=== PATIENT | male | born 1965 | race Caucasian/White ===

== ENCOUNTER 2018-06-21 20:52 | Emergency (ER) | payer MEDICAID ==
[~2018-06-21] VITALS: Ht 170.2 cm; Wt 65.0 kg
[2018-06-21] MEDS ORDERED: morphine 4 MG/ML inj SYRINge IM ONE (21:50)
--- NOTE | 2018-06-21 23:42 | NUR ---
PT UP TO SIDE OF BED URINATED 300CC CLEAR YELLOW URINE WITH MINIMAL ASST.
[2018-06-21 23:49] VITALS: BP 122/83
[2018-06-21] MEDS ORDERED: PER10325T PO (23:54)
[2018-06-21] MEDS ORDERED: oxyCODONE/APAP 10/325mg tablet PO ONE (23:55)
== END 2018-06-22 00:24 | disposition home or self-care (01) ==
LOC: ER 20:53
DX: G89.18 Other acute postprocedural pain (principal); Z98.890 Other specified postprocedural states; Z79.899 Other long term (current) drug therapy
CPT/HCPCS: 96372; 99283; J2270

== ENCOUNTER 2018-06-22 10:04 | Emergency (ER) | payer MEDICAID ==
[~2018-06-22] VITALS: Ht 170.2 cm; Wt 65.0 kg
[~2018-06-22 10:04] MED LIST: PER10325T PO
--- NOTE | 2018-06-22 11:01 | NUR ---
CONTACTED [facility] FOR DR EMILY BOURGEOIS REQUEST. Addendum: 06/22/18 at 1102 by [email or web address] AWAITING A CALL BACK FROM DR DIAZ
[2018-06-22] MEDS ORDERED: morphine 4 MG/ML inj SYRINge IM ONE (11:25)
--- NOTE | 2018-06-22 11:26 | NUR ---
[facility] called-- will be here in 5 mins to take PT to [facility].
[2018-06-22 11:49] VITALS: BP 132/82
== END 2018-06-22 11:51 | disposition home or self-care (01) ==
LOC: ER 10:04
DX: G89.18 Other acute postprocedural pain (principal); M54.2 Cervicalgia; Z79.899 Other long term (current) drug therapy; Z56.0 Unemployment, unspecified
CPT/HCPCS: 96372; 99283; J2270

== ENCOUNTER 2018-06-27 14:49 | Emergency (ER) | payer MEDICAID ==
[~2018-06-27] VITALS: Ht 170.2 cm; Wt 54.5 kg
[2018-06-27] MEDS ORDERED: ondansetron/PF 4mg/2ml inj IV ONE (15:10)
[2018-06-27] MEDS ORDERED: normal saline 1000ML IV soln IVB ONE (15:10)
[2018-06-27 15:50] LABS: BASOPHILS % (AUTO) 0.3 % (0-1); EOSINOPHILS # (AUTO) 0.2 X10'3 (0-0.9); EOSINOPHILS % (AUTO) 1.9 % (0-6); HEMOGLOBIN 13.3 g/dl (14.0-17.9); LYMPHOCYTES # (AUTO) 0.8 X10'3 (1.1-4.8); LYMPHOCYTES % (AUTO) 7.6 % (21-51); MEAN CORPUSCULAR HEMOGLOBIN 33.4 PG (27.0-31.0); MEAN CORPUSCULAR VOLUME 98.3 FL (78-98); MEAN PLATELET VOLUME 6.3 FL (7.4-10.4); MONOCYTES % (AUTO) 9.8 % (2-12); NEUTROPHILS # (AUTO) 8.1 X10'3 (1.8-7.7); NEUTROPHILS % (AUTO) 80.4 % (42-75); PLATELET COUNT 761 X10'3 (140-440); RED BLOOD COUNT 3.97 X10'6 (4.70-6.10); RED CELL DISTRIBUTION WIDTH 13.1 % (11.5-14.5); WHITE BLOOD COUNT 10.1 X10'3 (4.5-11.0)
[2018-06-27 16:04] LABS: ALANINE AMINOTRANSFERASE 28 U/L (12-78); ALBUMIN 3.7 G/DL (3.4-5.0); ALBUMIN/GLOBULIN RATIO 0.9 (1.1-1.5); ALKALINE PHOSPHATASE 82 IU/L (46-116); ANION GAP 14 (8-16); ASPARTATE AMINO TRANSFERASE 20 U/L (10-37); BILIRUBIN,TOTAL 0.4 MG/DL (0.1-1.0); BLOOD UREA NITROGEN 17 MG/DL (7-18); BUN/CREATININE RATIO 20.7 (5.4-32.0); CALCIUM 9.6 MG/DL (8.5-10.1); CHLORIDE 93 MMOL/L (99-107); CREATININE 0.82 MG/DL (0.60-1.10); ETHANOL < 0.010 GM/DL (0.0-0.010); GLUCOSE 111 MG/DL (70-104); POTASSIUM 3.9 MMOL/L (3.5-5.1); SODIUM 133 MMOL/L (135-145); TOTAL CARBON DIOXIDE 26.5 MMOL/L (24-32); TOTAL PROTEIN 7.9 G/DL (6.4-8.2); eGFR > 90 ML/MIN
[2018-06-27] MEDS ORDERED: normal saline 1000ML IV soln IV ONE (17:00)
[2018-06-27] MEDS ORDERED: morphine 4 MG/ML inj SYRINge IV ONE ×2 (17:00→21:00)
[2018-06-27] MEDS ORDERED: LORazepam 2 mg/ml vial IV ONE (17:00)
[2018-06-27] MEDS ORDERED: vancomycin/NS 1 GM ADD-VANTAGE 250 ML IV ONE (17:00)
[2018-06-27] MEDS ORDERED: piperacillin/tazo 3.375gm/50ml 50 ML IV ONE (17:00)
--- NOTE | 2018-06-27 17:25 | NUR ---
STRAIGHT CATH DRAINED 1100+, GAGNON PLACED
--- NOTE | 2018-06-27 17:25 | NUR ---
DRESSING REMOVED FROM UPPER NECK, DRAINAGE BROWN/YELLOW WITH FOUL SMELL, PT COVERED IN STOOL AND URINE
[2018-06-27 17:51] LABS: CLARITY,URINE CLEAR (Clear); COLOR,URINE YELLOW (Yellow); GLUCOSE, URINE NEGATIVE (Neg); KETONES,URINE 15 mg/dl (Neg); LEUKOCYTE ESTERASE ,URINE NEGATIVE (Neg); NITRITES, URINE NEGATIVE (Neg); OCCULT BLOOD,URINE NEGATIVE (Neg); PROTEIN,URINE NEGATIVE (Neg); UROBILINOGEN,URINE 0.2 E.U/dL (0.2-1.0)
[2018-06-27 17:58] LABS: UA COLLECTION TYPE STRAIGHT CATH
[2018-06-27 17:59] LABS: URINE AMPHETAMINE SCREEN POSITIVE (Neg); URINE BARBITUATE SCREEN NEGATIVE (Neg); URINE BENZODIAZEPINES SCREEN POSITIVE (Neg); URINE CANNABINOID SCREEN POSITIVE (Neg); URINE COCAINE SCREEN NEGATIVE (Neg); URINE METHADONE SCREEN NEGATIVE (Neg); URINE OPIATE SCREEN POSITIVE (Neg); URINE PHENCYCLIDINE SCREEN NEGATIVE (Neg)
--- NOTE | 2018-06-27 21:00 | NUR ---
PT PLACED IN C COLLAR PER
[2018-06-27 23:36] VITALS: BP 107/57
== END 2018-06-27 23:37 | disposition short-term general hospital (02) ==
LOC: ER 14:50
DX: T81.49XA Infection following a procedure, other surgical site, initial encounter (principal); M46.32 Infection of intervertebral disc (pyogenic), cervical region; F19.20 Other psychoactive substance dependence, uncomplicated; M62.81 Muscle weakness (generalized); G89.29 Other chronic pain; Z56.0 Unemployment, unspecified; Z91.19 Patient's noncompliance with other medical treatment and regimen; Z98.890 Other specified postprocedural states; Y92.89 Other specified places as the place of occurrence of the external cause
CPT/HCPCS: 36415; 72040; 72125; 80053; 80305; 80320; 81003; 83605; 85025; 87040; 96365; 96366; 96368; 96375; 96376; 99285; J2060; J2270; J2405; J2543; J3370; J7030